=== PATIENT | female | born 1995 | race African-American/Black ===

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

== ENCOUNTER 2017-05-06 09:41 | Outpatient (CLI) | payer MEDICAID ==
[2017-05-06] MEDS ORDERED: BETAMET ACET/BETAMET NA INJ 6 MG/1 ML ONE (10:10)
[2017-05-06] MEDS ORDERED: MAGNESIUM SULFATE 8 GM/200 ML RTUPB IV ONE (10:11)
[2017-05-06] MEDS ORDERED: AMPICILLIN SOD INJ 2 GM VIAL ONE (10:11)
[2017-05-06] MEDS ORDERED: AMPICILLIN SOD INJ 1 GM VIAL IV ONE (10:24)
[2017-05-06] MEDS ORDERED: BETAMET ACET/BETAMET NA INJ 6 MG/1 ML IM ONE (10:27)
[2017-05-06] MEDS ORDERED: AZITHROMYCIN 250 MG TABLET ONE (10:28)
[2017-05-06] MEDS ORDERED: AZITHROMYCIN 250 MG TABLET PO ONE (10:29)
[2017-05-06 10:31] LABS: APPEARANCE,URINE CLEAR; BILIRUBIN,URINE NEGATIVE (NEGATIVE); GLUCOSE, URINE NEGATIVE (NEGATIVE); KETONES,URINE NEGATIVE (NEGATIVE); LEUKOCYTE ESTERASE,URINE NEGATIVE (NEGATIVE); NITRITE,URINE NEGATIVE (NEGATIVE); PROTEIN,URINE NEGATIVE (NEGATIVE); URINE SPECIFIC GRAVITY 1.008; UROBILINOGEN,URINE NEGATIVE mg/dL (<2.0)
[2017-05-06 10:33] LABS: AMNISURE (ROM) POSITIVE (NEGATIVE)
[2017-05-06] MEDS ORDERED: MAGNESIUM SULFATE 20 GM/500 ML RTUINJ IV PRN (10:37)
[2017-05-06] MEDS ORDERED: MAGNESIUM SULFATE 4 GM/100 ML RTUPB IV ONE (10:37)
[2017-05-06 10:38] LABS: ABSOLUTE LYMPHOCYTES (AUTO) 2.2 10^3/uL (0.5-4.7); ABSOLUTE MONOCYTES (AUTO) 0.9 10^3/uL (0.1-1.4); ABSOLUTE NEUT (AUTO) 5.3 10^3/uL (1.7-8.2); BASOPHILS % (AUTO) 0.5 % (0-2); EOSINOPHILS % (AUTO) 0.6 % (0-6); HEMATOCRIT 32.8 % (36.0-47.0); HEMOGLOBIN 11.3 g/dL (12.0-15.5); HGB HCT DIFFERENCE 1.1; LYMPHOCYTES % (AUTO) 26.1 % (13-45); MEAN CORPUSCULAR HEMOGLOBIN 29.9 pg (27.0-33.4); MEAN CORPUSCULAR HGB CONC 34.5 g/dL (32.0-36.0); MEAN CORPUSCULAR VOLUME 87 fl (80-97); MONOCYTES % (AUTO) 10.2 % (3-13); RED BLOOD COUNT 3.77 10^6/uL (3.72-5.28); RED CELL DISTRIBUTION WIDTH 12.7 % (11.5-14.0); SEGMENTED NEUTROPHILS % (AUTO) 62.6 % (42-78); WHITE BLOOD COUNT 8.5 10^3/uL (4.0-10.5)
[2017-05-06 10:49] LABS: URINE BARBITURATES SCREEN NEGATIVE; URINE METHADONE SCREEN NEGATIVE; URINE OPIATES LOW NEGATIVE; URINE PHENCYCLIDINE SCREEN NEGATIVE
[2017-05-06] MEDS ORDERED: LIDOCAINE 2% JELLY 5 ML TUBE ONE (10:49)
[2017-05-06] MEDS ORDERED: ONDANSETRON HCL INJ/PF 4 MG/2 ML SDV IV ONE (10:51)
[2017-05-06 10:56] LABS: ANION GAP 11 (5-19); BLOOD UREA NITROGEN 4 mg/dL (7-20); CALCIUM 9.3 mg/dL (8.4-10.2); CARBON DIOXIDE 20 mmol/L (22-30); CHLORIDE 106 mmol/L (98-107); CREATININE RESULT 0.52 mg/dL (0.52-1.25); GLUCOSE 72 mg/dL (75-110)
[2017-05-06 10:57] LABS: POTASSIUM 3.9 mmol/L (3.6-5.0)
[2017-05-06 10:58] LABS: C-REACTIVE PROTEIN < 5.0 mg/L (<10.0)
[2017-05-06] MEDS ORDERED: AMPICILLIN SODIUM 2 GM in NORMAL SALINE 100 ML IV ONE (11:00)
[2017-05-06] MEDS ORDERED: ONDANSETRON HCL INJ/PF 4 MG/2 ML SDV ONE (11:03)
[2017-05-06 11:16] LABS: ERYTHROCYTE SEDIMENTATION RATE 35 mm/hr (0-20)
--- NOTE | 2017-05-06 11:37 | RADIOLOGY REPORT (SQ) ---
EXAM DESCRIPTION: U/S OB LIMITED COMPLETED DATE/TIME: 05/06/2017 11:20 am REASON FOR STUDY: growth, presentation and lie COMPARISON: 12/19/2016 TECHNIQUE: Limited transabdominal grayscale ultrasound for evaluation of specific requested obstetri kati parameters. LIMITATIONS: None. FINDINGS: CERVICAL LENGTH: 2.9 cm. Closed. RADHA: 2.4 cm. Oligohydramnios. FHR: 141 beats per minute. PRESENTATION: Cephalic. OTHER: Anterior grade 1 placenta. Estimated weight 1794 g. Estimated gestational age 31 weeks 6 days IMPRESSION: LIMITED OBSTETRICAL ULTRASOUND WITH MEASURED PARAMETERS DELINEATED ABOVE. Trimester of : Third trimester - 28 weeks to delivery. TECHNICAL DOCUMENTATION: JOB ID: [id number] [employer]- All Rights Reserved
[2017-05-06 12:40] LABS: CHLAM PCR NOT DETECTED (NOT DETECT)
== END 2017-05-06 12:37 | disposition short-term general hospital (02) ==
LOC: LC 09:41
PROVIDERS: ATTEND Obstetrics & Gynecology
PROC: 4A1HXCZ Monitoring of Products of Conception, Cardiac Rate, External Approach (ICD-10-PCS; principal; 2017-05-06)
DX: O60.03 Preterm labor without delivery, third trimester (principal); Z3A.31 31 weeks gestation of pregnancy
CPT/HCPCS: 84112; 36415; 85025; 85652; 86140; 87077; 80048; 81001; 87081; 80307; 87491; 87591; 76815; 59899; J3475; J0290; Q0144; J0702; J2405; J3490

== ENCOUNTER 2017-11-17 22:23 | Emergency (ER) | payer SELFPAY ==
[2017-11-18] MEDS ORDERED: NORMAL SALINE 1000 ML 1,000 ML IV ONE (00:09)
[2017-11-18] MEDS ORDERED: ONDANSETRON HCL INJ/PF 4 MG/2 ML SDV IV ONE (00:09)
--- NOTE | 2017-11-18 00:10 | ER Document Report ---
HPI - HPI Patient complains to provider of: Dehydration Onset: This evening Onset/Duration: Gradual Quality of pain: Achy Pain Level: 3 Context: Patient presents complaining of generalized abdominal pain with nausea and vomiting that started this evening. Patient does report mild cough for the past 2 days with sneezing. Patient denies any fever. Patient denies any diarrhea. Patient reports vomiting 4 times tonight. Associated Symptoms: Nonproductive cough, Nausea, Vomiting, Rhinnorhea. denies : Diarrhea, Fever, Sore throat Exacerbated by: Denies Relieved by: Denies Similar symptoms previously: No Recently seen / treated by doctor: No - ROS ROS below otherwise negative: Yes Systems Reviewed and Negative: Yes All other systems reviewed and negative - CONSTITUTIONAL Constitutional: DENIES: Fever, Chills - EENT EENT: REPORTS: Congestion. DENIES: Sore Throat - NEURO Neurology: DENIES: Headache - CARDIOVASCULAR Cardiovascular: DENIES: Chest pain - RESPIRATORY Respiratory: REPORTS: Coughing. DENIES: Trouble Breathing - GASTROINTESTINAL Gastrointestinal: REPORTS: Abdominal Pain, Nausea, Patient vomiting. DENIES: Diarrhea - URINARY Urinary: DENIES: Dysuria - REPRODUCTIVE Reproductive: DENIES: : - MUSCULOSKELETAL Musculoskeletal: DENIES: Back Pain - DERM Skin Color: Normal Skin Problems: None Past Medical History - General Information source: Patient - Social History Smoking Status: Never Smoker Frequency of alcohol use: None Drug Abuse: None Occupation: [place] [employer] at [employer] with: Family Family History: Reviewed & Not Pertinent - Medical History Medical History: Negative Surgical Hx: Negative - Immunizations Immunizations up to date: Yes Hx Diphtheria, Pertussis, Tetanus Vaccination: Yes Vertical Provider Document - CONSTITUTIONAL Agree With Documented VS: Yes Exam Limitations: No Limitations General Appearance: WD/WN, No Apparent Distress - INFECTION CONTROL TRAVEL OUTSIDE OF THE [place] IN LAST 30 DAYS: No - HEENT HEENT: Atraumatic, Normal ENT Exam, Normocephalic - NECK Neck: Normal Inspection, Supple. negative: Lymphadenopathy-Left, Lymphadenopathy-Right - RESPIRATORY Respiratory: Breath Sounds Normal, No Respiratory Distress, Chest Non-Tender - CARDIOVASCULAR Cardiovascular: Regular Rate, Regular Rhythm, No Murmur - GI/ABDOMEN Gastrointestinal: Abdomen Soft, Abdomen Non-Tender, Normal Bowel Sounds - BACK Back: Normal Inspection. negative: CVA Tenderness-Right, CVA Tenderness-Left - MUSCULOSKELETAL/EXTREMETIES Musculoskeletal/Extremeties: POWER ROLLINS - NEURO Level of Consciousness: Awake, Alert, Appropriate Motor/Sensory: No Motor Deficit - DERM Integumentary: Warm, Dry, No Rash Course - Re-evaluation Re-evalutation: 11/18/17 01:46 Patient without any emesis during ER stay, patient feeling better. Abdomen soft , nontender. Patient nontoxic in appearance. Patient presents with abdominal pain without signs of peritonitis or other life-threatening or serious etiology. Patient appears stable for discharge and has been instructed to return immediately if the symptoms worsen in any way, or in 8-12 hours if not improved for reevaluation. The patient has been instructed to return if the symptoms worsen or change in any way. - Vital Signs Vital signs: Temp Pulse Resp BP Pulse Ox 98.3 F 87 20 108/66 96 11/17/17 22:52 11/17/17 22:52 11/17/17 22:52 11/17/17 22:52 11/17/17 22:52 - Laboratory Result Diagrams: 11/18/17 00:50 11/18/17 00:50 Discharge - Discharge Clinical Impression: Abdominal pain Qualifiers: Abdominal location: unspecified location Qualified Code(s): R10.9 - Unspecified abdominal pain Nausea and vomiting Qualifiers: Vomiting type: unspecified Vomiting Intractability: non-intractable Qualified Code(s): R11.2 - Nausea with vomiting, unspecified Condition: Stable Disposition: HOME, SELF-CARE Instructions: Abdominal Pain ([facility]) Additional Instructions: Return immediately for any new or worsening symptoms Followup with your primary care provider, call tomorrow to make a followup appointment VOMITING: Vomiting (or nausea without vomiting) can be caused by many other different problems. It can mean that something's wrong with the stomach, such as ulcers or inflammation or the intestinal tract, such as appendicitis. But it can also be a symptom of a problem that has nothing to do with the stomach or intestines. Vomiting is common with severe headaches, earaches, tonsillitis, and kidney infections, etc. We see it with pneumonia or heart attacks. Drugs can cause nausea and vomiting. Many abdominal problems cause vomiting; for example, gallstones, kidney stones, pancreatitis, and intestinal obstruction ( blocked bowels). In most cases, curing the vomiting depends on fixing the problem that caused it. For temporary relief, we may use an anti-nausea medicine. For home use, we can prescribe suppositories, chewable pills, pills that dissolve in the mouth, or liquid anti-nausea drugs. If the vomiting seems to be caused by a problem in the stomach, acid-suppressing drugs may be prescribed as well. It's important to avoid dehydration. Sip small amounts of clear liquids ( soft drinks, tea, broth, etc) . Try to take fluids frequently even if you are vomiting to prevent dehydration. Take increasing amounts of fluid and when liquids are being consumed successfully, advance to small amounts of bland food (toast, soups, mashed potatoes, etc.) until you are able to resume a regular diet. Avoid aspirin, tobacco, and alcohol. If the vomiting worsens, if the problem that's making you vomit worsens, or if there's evidence of bleeding in the stomach (such as black, tarry stool, or bloody or black vomit), you should return immediately. Also, return if abdominal pain worsens or becomes localized to one area or you develop high fever. Call your doctor if you aren't improved in 24 hours. VIRAL SYNDROME: The physician has diagnosed a viral infection. Viruses not only cause "colds," but can cause many different symptoms including generalized aching, fever, headache, cough, diarrhea, nausea, vomiting, and fatigue. The treatment, for the most part, is simply relief of symptoms. This means that antibiotics are usually not given. Rest, fluids, pain medications and, occasionally, medication for the specific symptoms that are most bothersome will be prescribed. Use good handwashing to avoid passing the virus to others. Shared toys should be cleaned with disinfectant. Clean the toilets, sinks, and counter surfaces in bathrooms. Launder clothing in hot water. Contact the physician if you develop any new or unusual symptoms such as severe headache, stiff neck, high fever, chest pain, productive cough, or shortness of breath. You should be rechecked if you don't see marked improvement within seven to 10 days. INTRAVENOUS (I V) FLUIDS: As part of your care today, you received intravenous (IV) fluids. IV fluids are administered to patients who are dehydrated or to those who have certain chemical (electrolyte) abnormalities that need correcting. ANTINAUSEA MEDICATION: You have been given a medication to suppress nausea and vomiting. This type of medication can be given as a shot, pill, or suppository. It will usually last for many hours. Pills and shots usually last six to eight hours. For the typical illness, only one or two doses of the medication may be necessary. Mild lightheadedness may occur. This type of medicine can cause drowsiness. Do not drive or operate dangerous machinery while under its influence. Do not mix with alcohol. See your doctor at once if you have muscle spasms or tightness, or uncontrollable motions (particularly of the neck, mouth, or jaw). Persistent vomiting or severe lightheadedness should also be evaluated by the physician. FOLLOW-UP CARE: If you have been referred to a physician for follow-up care, call the physician s office for an appointment as you were instructed or within the next two days. If you experience worsening or a significant change in your symptoms, notify the physician immediately or return to the Emergency Department at any time for re-evaluation. Prescriptions: Ondansetron HCl [Zofran 4 mg Tablet] 1 - 2 tab PO Q6 PRN #15 tablet PRN Reason: Forms: Return to Work Referrals: [facility] [Provider Group] - Follow up as needed
[2017-11-18 01:07] LABS: ABSOLUTE EOSINOPHILS # (AUTO) 0.1 10^3/uL (0.0-0.6); ABSOLUTE MONOCYTES (AUTO) 0.7 10^3/uL (0.1-1.4); ABSOLUTE NEUT (AUTO) 5.2 10^3/uL (1.7-8.2); BASOPHILS % (AUTO) 0.6 % (0-2); EOSINOPHILS % (AUTO) 1.8 % (0-6); HEMATOCRIT 37.5 % (36.0-47.0); HEMOGLOBIN 12.5 g/dL (12.0-15.5); LYMPHOCYTES % (AUTO) 13.8 % (13-45); MEAN CORPUSCULAR HEMOGLOBIN 29.1 pg (27.0-33.4); MEAN CORPUSCULAR HGB CONC 33.3 g/dL (32.0-36.0); MEAN CORPUSCULAR VOLUME 87 fl (80-97); MONOCYTES % (AUTO) 9.9 % (3-13); PLATELET COUNT 235 10^3/uL (150-450); RED CELL DISTRIBUTION WIDTH 12.5 % (11.5-14.0); SEGMENTED NEUTROPHILS % (AUTO) 73.9 % (42-78); TOTAL CELLS COUNTED % (AUTO) 100 %
[2017-11-18 01:18] LABS: ALANINE AMINOTRANSFERASE 26 U/L (9-52); ALBUMIN 4.1 g/dL (3.5-5.0); ALKALINE PHOSPHATASE 54 U/L (38-126); ANION GAP 15 (5-19); ASPARTATE AMINO TRANSFERASE 42 U/L (14-36); BILIRUBIN,DIRECT 0.3 mg/dL (0.0-0.4); BILIRUBIN,TOTAL 0.7 mg/dL (0.2-1.3); BLOOD UREA NITROGEN 21 mg/dL (7-20); CALCIUM 9.4 mg/dL (8.4-10.2); CARBON DIOXIDE 25 mmol/L (22-30); CHLORIDE 106 mmol/L (98-107); GLUCOSE 76 mg/dL (75-110); LIPASE 18.2 U/L (23-300); POTASSIUM 3.8 mmol/L (3.6-5.0); SODIUM 145.5 mmol/L (137-145); TOTAL PROTEIN 7.3 g/dL (6.3-8.2)
[2017-11-18 01:35] LABS: APPEARANCE,URINE CLOUDY; BILIRUBIN,URINE NEGATIVE (NEGATIVE); GLUCOSE, URINE NEGATIVE (NEGATIVE); KETONES,URINE 80 mg/dL (NEGATIVE); LEUKOCYTE ESTERASE,URINE TRACE (NEGATIVE); NITRITE,URINE NEGATIVE (NEGATIVE); PROTEIN,URINE 30 mg/dL (NEGATIVE); URINE SPECIFIC GRAVITY 1.031
[2017-11-18 01:36] LABS: COLOR,URINE YELLOW
[2017-11-18 02:14] VITALS: BP 93/58
== END 2017-11-18 02:18 | disposition home or self-care (01) ==
LOC: ER 22:23
DX: R10.84 Generalized abdominal pain (principal); R11.2 Nausea with vomiting, unspecified; R05 Cough; R06.7 Sneezing; J34.89 Other specified disorders of nose and nasal sinuses
CPT/HCPCS: 99283; 96361; 96374; 36415; 83690; 84703; 85025; 80053; 81001; J2405; J7030